=== PATIENT | male | born 1970 | race American Indian/Alaskan Native ===

== ENCOUNTER 2021-01-08 12:34 | Emergency (ER) | payer SELFPAY ==
[2021-01-08 12:46] VITALS: BP 122/80
[2021-01-08] MEDS ORDERED: KETOROLAC 60 MG/2 ML INJ IM ONE (12:56)
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
== END 2021-01-08 13:51 | disposition home or self-care (01) ==
LOC: ED 12:34
DX: M54.41 Lumbago with sciatica, right side (principal); Z90.49 Acquired absence of other specified parts of digestive tract; Z79.899 Other long term (current) drug therapy
CPT/HCPCS: 96372; 99282; J1885

== ENCOUNTER 2021-01-31 13:51 | Emergency (ER) | payer SELFPAY ==
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
[2021-01-31 18:06] VITALS: BP 135/83
== END 2021-01-31 18:08 | disposition home or self-care (01) ==
LOC: ED 13:51
DX: M54.16 Radiculopathy, lumbar region (principal); Z79.899 Other long term (current) drug therapy
CPT/HCPCS: 99282